=== PATIENT | male | born 1990 | race Caucasian/White ===

== ENCOUNTER 2023-03-21 22:15 | Emergency (ER) | payer OTHER, SELFPAY ==
[2023-03-21 22:21] VITALS: BP 124/84; PULSE 87; RESP 14; TEMP 36.6; O2SAT 98; BMI 22.4
--- NOTE | 2023-03-21 22:28 | PC.NURSE ---
patient states he started to develop a migraine monday night and has been taking OTC excedrin migraine, migraine resolved monday. states he has a history of migraines. but states since migraine has resolved he now feels very tired, states he has been sleeping 16hours a day, and has had no appetite. denies nausesa or vomiting. denies any recent head injury. patient with independent and steady gait. patient with full ROM. denies visual changes.
--- NOTE | 2023-03-21 22:32 | ED_ITS ---
HPI - Weakness General Chief complaint: Weakness Stated complaint: WEAKNESS Time Seen by Provider: 03/21/23 22:28 Mode of arrival: walk-in History of Present Illness HPI Narrative: patient states migraine headache for 3 days. Took OTC Excedrin. Has not taken Excedrin since last PM and the headaches remains resolved. Now he presents with gen. Weakness. States he spends all his time in bed and hasn't been to work. No cough, nausea or vomiting or diarrhea. Just feels gen. weak Complaint: Reports generalized weakness Related Data Allergies Allergy/AdvReac Type Severity Reaction Status Date / Time bee venom protein (honey bee) Allergy Verified 03/21/23 22:25 Review of Systems ROS Status of ROS 10 or more systems reviewed and unremarkable except as noted in history and below Exam Constitutional Vital Signs, click to edit/add: Last Vital Signs Temp 97.9 F 03/21/23 22:21 Pulse 87 03/21/23 22:21 Resp 14 03/21/23 22:21 BP 124/84 03/21/23 22:21 Pulse Ox 98 03/21/23 22:21 O2 Del Method Room Air 03/21/23 22:21 Common normals: no apparent distress, average body habitus, oriented x3, no l imitations and healthy appearing Eye Common normals: EOMs intact bilaterally and conjunctivae normal Respiratory Common normals: normal respiratory effort, no retractions, no use of accessory muscles and clear to auscultation bilaterally GI Common normals: Normal to inspection, nondistended, normoactive bowel sounds present, soft to palpation and non-tender Extremity Common normals: normal to inspection Neuro Common normals: oriented x3, CN's II-XII intact bilaterally, moves all extremities, no focal motor deficits and no sensory deficits noted Psych Appearance: grossly normal Course Vital Signs Vital signs: Vital Signs Temperature 97.9 F 03/21/23 22:21 Pulse Rate 87 03/21/23 22:21 Respiratory Rate 14 03/21/23 22:21 Blood Pressure 124/84 03/21/23 22:21 Pulse Oximetry 98 03/21/23 22:21 Oxygen Delivery Method Room Air 03/21/23 22:21 Temperature 97.9 F 03/21/23 22:21 Pulse Rate 87 03/21/23 22:21 Respiratory Rate 14 03/21/23 22:21 Blood Pressure 124/84 03/21/23 22:21 Pulse Oximetry 98 03/21/23 22:21 Oxygen Delivery Method Room Air 03/21/23 22:21 MDM - Weakness MDM Narrative Medical decision making narrative: patient arrives with complaint of gen. weakness. workup remarkable for dehydration and substance abuse. Patient hydrated and is feeling better. Will discharge home encourage to drink plenty of fluids Lab Data Labs: Lab Results 03/21/23 Range/Units 22:43 WBC 10.1 (4.0-11.0) 10^3/uL RBC 4.82 (4.70-6.10) 10^6/uL Hgb 15.1 (14.0-18.0) g/dL Hct 45.5 (42.0-54.0) % MCV 94.4 H (80.0-94.0) fL MCH 31.3 (25.9-34.0) pg MCHC 33.2 (29.9-35.2) g/dL RDW 12.4 (11.0-15.0) % Plt Count 181 (150-450) 10^3/uL MPV 10.1 (9.5-13.5) fL Neut % (Auto) 58.1 (43.0-75.0) % Lymph % (Auto) 25.8 (20.5-60.0) % [place] % (Auto) 7.6 (1.7-12.0) % Eos % (Auto) 6.5 (0.9-7.0) % Baso % (Auto) 1.5 (0.2-2.0) % Neut # (Auto) 5.9 (1.4-6.5) 10^3/uL Lymph # (Auto) 2.6 (1.2-3.8) 10^3/uL [place] # (Auto) 0.8 (0.3-0.8) 10^3/uL Eos # (Auto) 0.7 (0.0-0.7) 10^3/uL Baso # (Auto) 0.2 H (0.0-0.1) 10^3/uL Abs Immat Gran (auto) 0.05 H (0.00-0.03) 10^3/uL Imm/Tot Granulo (auto) 0.5 (0.0-0.5) % Sodium 138 (136-145) mmol/L Potassium 4.0 (3.5-5.1) mmol/L Chloride 104 (98-107) mmol/L Carbon Dioxide 29.3 (21.0-32.0) mmol/L Anion Gap 8.7 BUN 10.0 (7.0-18.0) mg/dL Creatinine 1.04 (0.70-1.30) mg/dL Est GFR ( Amer) >60 (>=60) Est GFR (Non-Af Amer) >60 (>=60) BUN/Creatinine Ratio 9.6 Glucose 121 H (74-106) mg/dL Calcium 8.5 (8.5-10.1) mg/dL Total Bilirubin 0.3 (0.2-1.0) mg/dL AST 9 L (15-37) U/L ALT 24 (16-63) U/L Alkaline Phosphatase 75 (46-116) U/L Total Protein 6.9 (6.4-8.2) g/dL Albumin 3.9 (3.4-5.0) g/dL Globulin 3.0 g/dL Albumin/Globulin Ratio 1.3 TSH 1.319 (0.358-3.740) uIU/mL Free T4 0.86 (0.76-1.46) ng/dL Urine Color Yellow (YELLOW) Urine Clarity Clear (CLEAR) Urine pH 5.5 (5.0-9.0) Ur Specific [place] >=1.030 A (1.005-1.025) Urine Protein Negative (NEG/TRACE) mg/dL Urine Glucose (UA) Negative (NEGATIVE) mg/dL Urine Ketones Negative (NEGATIVE) mg/dL Urine Occult Blood Negative (NEGATIVE) Urine Nitrite Negative (NEGATIVE) Urine Bilirubin Negative (NEGATIVE) Urine Urobilinogen 0.2 (0.2-1.0) EU/dL Ur Leukocyte Esterase Negative (NEGATIVE) Urine RBC Cancelled Urine WBC Cancelled Ur Squamous Epith Cells Cancelled Ur Transition Epith Cell Cancelled Ur Renal Epithelial Cell Cancelled Urine Crystals Cancelled Calcium Carbonate Cryst Cancelled Calcium Phosphate Cryst Cancelled Calcium Oxalate Crystal Cancelled Cystine Crystals Cancelled Uric Acid Crystals Cancelled Triple Phos Crystals Cancelled Tyrosine Crystals Cancelled Amorphous Sediment Cancelled Urine Bacteria Cancelled Urine Casts Cancelled Fatty Casts Cancelled Hyaline Casts Cancelled Fine Granular Casts Cancelled Coarse Granular Casts Cancelled Waxy Casts Cancelled RBC Casts Cancelled Urine Starch Cancelled Urine Mucus Cancelled Urine Trichomonas Cancelled Urine Yeast Cancelled Urine Sperm Cancelled Ur Oval Fat Bodies Cancelled Ur Culture Indicated? Cancelled Urine Opiates Screen Negative (NEGATIVE) Ur Buprenorphine Scrn Negative (NEGATIVE) Ur Oxycodone Screen Negative (NEGATIVE) Urine Methadone Screen Negative (NEGATIVE) Ur Propoxyphene Screen Negative (NEGATIVE) Ur Barbiturates Screen Negative (NEGATIVE) U Tricyclic Antidepress Negative (NEGATIVE) Ur Phencyclidine Scrn Negative (NEGATIVE) Ur Amphetamines Screen Negative (NEGATIVE) U Methamphetamines Scrn Negative (NEGATIVE) U Benzodiazepines Scrn Negative (NEGATIVE) Urine Cocaine Screen Positive A (NEGATIVE) U Cannabinoids Screen Positive A (NEGATIVE) Discharge Plan Discharge Chief Complaint: Weakness Clinical Impression: Dehydration Patient Disposition: Home, Self-Care Instructions: Dehydration (ED) Stand Alone Forms: Portal Instructions Referrals: Shaikh José MD [Primary Care Provider] - 1 week
[2023-03-21 22:51] LABS: Basophils Absolute Auto 0.2 10^3/uL (0.0-0.1); Basophils Percent Auto 1.5 % (0.2-2.0); Eosinophils Absolute Auto 0.7 10^3/uL (0.0-0.7); Eosinophils Percent Auto 6.5 % (0.9-7.0); Hematocrit 45.5 % (42.0-54.0); Hemoglobin 15.1 g/dL (14.0-18.0); Immature Granulocytes Abs Auto 0.05 10^3/uL (0.00-0.03); Immature Granulocytes Pct Auto 0.5 % (0.0-0.5); Lymphocytes Absolute Auto 2.6 10^3/uL (1.2-3.8); Lymphocytes Percent Auto 25.8 % (20.5-60.0); Mean Corpuscular HGB Conc 33.2 g/dL (29.9-35.2); Mean Corpuscular Hemoglobin 31.3 pg (25.9-34.0); Mean Corpuscular Volume 94.4 fL (80.0-94.0); Mean Platelet Volume 10.1 fL (9.5-13.5); Monocytes Absolute Auto 0.8 10^3/uL (0.3-0.8); Monocytes Percent Auto 7.6 % (1.7-12.0); Neutrophils Absolute Auto 5.9 10^3/uL (1.4-6.5); Neutrophils Percent Auto 58.1 % (43.0-75.0); Platelet Count 181 10^3/uL (150-450); Red Blood Count 4.82 10^6/uL (4.70-6.10); Red Cell Distribution Width 12.4 % (11.0-15.0); White Blood Count 10.1 10^3/uL (4.0-11.0)
[2023-03-21] MEDS: 0.9 % SODIUM CHLORIDE 1,000 ML 999 ML IV ×2 (22:52)
[2023-03-21 23:03] LABS: Bilirubin Urine NEGATIVE (NEGATIVE); Blood Urine NEGATIVE (NEGATIVE); Clarity Urine CLEAR (CLEAR); Color Urine YELLOW (YELLOW); Glucose Urine UA NEGATIVE (NEGATIVE); Ketones Urine NEGATIVE (NEGATIVE); Leukocyte Esterase Urine NEGATIVE (NEGATIVE); Nitrite Urine NEGATIVE (NEGATIVE); Protein Urine NEGATIVE (NEG/TRACE); Specific Gravity Urine >=1.030 (1.005-1.025); Urobilinogen Urine 0.2 EU/dL (0.2-1.0); pH Urine 5.5 (5.0-9.0)
[2023-03-21 23:04] LABS: Urine Microscopic Indicated NO
[2023-03-21 23:08] LABS: Alanine Aminotransferase 24 U/L (16-63); Albumin Globulin Ratio 1.3; Albumin Level 3.9 g/dL (3.4-5.0); Alkaline Phosphatase 75 U/L (46-116); Anion Gap 8.7; Aspartate Amino Transferase 9 U/L (15-37); BUN Creatinine Ratio 9.6; Bilirubin Total 0.3 mg/dL (0.2-1.0); Calcium 8.5 mg/dL (8.5-10.1); Carbon Dioxide 29.3 mmol/L (21.0-32.0); Chloride 104 mmol/L (98-107); Estimated GFR (African America >60 (>=60); Estimated GFR (Non-African Ame >60 (>=60); Glucose 121 mg/dL (74-106); Sodium 138 mmol/L (136-145); Total Protein 6.9 g/dL (6.4-8.2)
[2023-03-21 23:47] LABS: Amphetamine Screen Urine NEGATIVE (NEGATIVE); Barbiturates Screen Urine NEGATIVE (NEGATIVE); Benzodiazepines Screen Urine NEGATIVE (NEGATIVE); Buprenorphine Screen Urine NEGATIVE (NEGATIVE); Cannabinoid Screen Urine POSITIVE (NEGATIVE); Cocaine Screen Urine POSITIVE (NEGATIVE); Methadone Screen Urine NEGATIVE (NEGATIVE); Methamphetamines Screen Urine NEGATIVE (NEGATIVE); Opiate Screen Urine NEGATIVE (NEGATIVE); Oxycodone Screen Urine NEGATIVE (NEGATIVE); Phencyclidine Screen Urine NEGATIVE (NEGATIVE); Tricyclic Antidepressant Urine NEGATIVE (NEGATIVE)
[2023-03-21 23:48] LABS: Free T4 0.86 ng/dL (0.76-1.46)
[2023-03-21 23:52] LABS: Thyroid Stimulating Hormone 1.319 uIU/mL (0.358-3.740)
== END 2023-03-22 00:12 | disposition home or self-care (01) ==
PROVIDERS: Emergency Provider Internal Medicine; PCP Internal Medicine
DX: E86.0 Dehydration (principal); F19.10 Other psychoactive substance abuse, uncomplicated
CPT/HCPCS: 36415; 80053; 80307; 81001; 81003; 84439; 84443; 85025; 96360; 99284

== ENCOUNTER 2024-08-26 02:52 | Emergency (ER) | payer OTHER, SELFPAY ==
[2024-08-26 02:56] VITALS: BP 130/88; PULSE 105; TEMP 36.3; O2SAT 96; BMI 22.5
--- NOTE | 2024-08-26 03:23 | ED.GENADUL1 ---
HPI HPI - General Adult General Chief complaint: Skin/Abscess/Foreign Body Stated complaint: NASAL PAIN Time Seen by Provider: 08/26/24 03:01 Source: patient Mode of arrival: walk-in Limitations: no limitations History of Present Illness HPI narrative: This 34-year-old male presents to the emergency department with a week and a half long history of stuffy nose, facial pain and right ear fullness. He states he has been blowing his nose and has noticed a pressure buildup in his ears mostly the right 1. He also reports pain over the right forehead and right cheek. He denies visual symptoms, chills or fever. Patient also states that he is developing a recurrent pilonidal cyst which has happened to him a number of times in the past. He had been referred to surgery for excision of it but change his mind at the last minute. He denies any history of hypertension, asthma or diabetes. Related Data Previous Rx's ?Medication ?Instructions ?Recorded amoxicillin 875 mg-potassium 1 tab PO BID #20 tabs 08/26/24 clavulanate 125 mg tablet doxycycline hyclate 100 mg capsule 100 mg PO BID 10 days #20 caps 08/26/24 prednisone 20 mg tablet 20 mg PO DAILY #7 tabs 08/26/24 Allergies Allergy/AdvReac Type Severity Reaction Status Date / Time bee venom protein (honey bee) Allergy Anaphylaxis Verified 08/26/24 03:01 Opioid HPI Opioid Management Most Recent Opioid Data: Ur Phencyclidine Scrn Negative (NEGATIVE) 03/21/23 22:43 03/21/23 Review of Systems ROS Narrative All other systems are reviewed and are negative other than what is mentioned in the HPI. PFSH PFS Social History Little interest or pleasure in doing things: not at all Feeling down, depressed, or hopeless: not at all Exam Narrative Exam Narrative: Patient appears nondistressed on arrival. Vital signs are quite stable. Pupils are equal and reactive. Nasal mucosa is congested. There is no facial tenderness. Fluid is seen behind both eardrums. Oral cavity is moist with no pharyngeal erythema. Neck is supple. Lung sounds are clear to auscultation. Heart has regular rate and rhythm. Examination: Of his gluteal region repeat feels a number of healed incision scars along the medial aspect of the right buttock. There is underlying induration and small pockets of fluctuance. There is no overlying redness or warmth. Constitutional Vital Signs, click to edit/add: Last Vital Signs Temp 97.4 F L 08/26/24 02:56 Pulse 105 H 08/26/24 02:56 Resp 16 08/26/24 02:56 BP 130/88 08/26/24 02:56 Pulse Ox 96 08/26/24 02:56 O2 Del Method Room Air 08/26/24 02:56 Course Vital Signs Vital signs: Vital Signs Temperature 97.4 F L 08/26/24 02:56 Pulse Rate 105 H 08/26/24 02:56 Respiratory Rate 16 08/26/24 02:56 Blood Pressure 130/88 08/26/24 02:56 Pulse Oximetry 96 08/26/24 02:56 Oxygen Delivery Method Room Air 08/26/24 02:56 Temperature 97.4 F L 08/26/24 02:56 Pulse Rate 105 H 08/26/24 02:56 Respiratory Rate 16 08/26/24 02:56 Blood Pressure 130/88 08/26/24 02:56 Pulse Oximetry 96 08/26/24 02:56 Oxygen Delivery Method Room Air 08/26/24 02:56 Medical Decision Making [facility] Narrative Medical decision making narrative: Patient presents with sinusitis symptoms of 1-1/2 weeks duration at which point I feel he would benefit from antibiotics. He also has developing an recurrent pilonidal cyst for which he will also need antibiotics. He will be placed on Augmentin and doxycycline and is referred to his PCP and outpatient surgery follow-up. He is also placed on prednisone 20 mg daily for 7 days to help with his sinus symptoms and is advised steam inhalations twice a day. Patient was advised to return anytime for worsening symptoms. Differential Diagnosis Differential Diagnosis: Sinusitis, otitis, facial cellulitis, gluteal abscess. Discharge Plan Discharge Chief Complaint: Skin/Abscess/Foreign Body Clinical Impression: Acute rhinosinusitis, Chronic recurrent pilonidal cyst Patient Disposition: Home, Self-Care Time of Disposition Decision: 03:15 Condition: Good Mode of Transportation: Private Vehicle Prescriptions / Home Meds: New doxycycline hyclate 100 mg capsule 100 mg PO BID 10 Days Qty: 20 0RF prednisone 20 mg tablet 20 mg PO DAILY Qty: 7 0RF amoxicillin-pot clavulanate 875-125 mg tablet 1 tab PO BID Qty: 20 0RF Print Language: Thai Instructions: Pilonidal Cyst (ED), Rhinosinusitis (ED) Additional Instructions: Steam inhalations twice a day. Follow-up with your PCP within a week and with general surgery within a week also. Return for worsening symptoms. Referrals: Brendon Lino MD [Physician] - 1 week Shaikh José MD [Physician] - 1 week
== END 2024-08-26 03:42 | disposition home or self-care (01) ==
PROVIDERS: Emergency Provider Emergency Medicine
DX: J01.90 Acute sinusitis, unspecified (principal); L05.91 Pilonidal cyst without abscess
CPT/HCPCS: 99283

== ENCOUNTER 2025-07-09 08:35 | Emergency (ER) | payer MEDICAID, SELFPAY ==
[2025-07-09 08:42] VITALS: BP 138/75; PULSE 84; TEMP 36.4; O2SAT 100; BMI 21.6
--- NOTE | 2025-07-09 09:01 | CT_ITS ---
[address] [address] Patient Name: KENIA WHITE MRN: [id number] date: 1990 Sex: M Assigned Patient Location: ER Current Patient Location: [facility] Accession/Order Number: [id number] Exam Date: 07/09/2025 09:16 Report Date: 07/09/2025 09:40 At the request of: YOLIE ALCAZAR MD Procedure: CT abdomen pelvis wo con CT abdomen pelvis wo con 07/09/2025 9:21 AM SIGNS AND SYMPTOMS: ^right flank pain, r/o stone TECHNIQUE: Multidetector ct axial images of the abdomen and pelvis were obtained without IV contrast. Multiplanar reformats were performed and reviewed to further define anatomy and possible pathology. CT was performed with one or more of the following dose reduction techniques: Automated exposure control, adjustment of the mA and/or kV according to patient size, or use of iterative reconstruction technique. COMPARISON: 06/07/2022 FINDINGS: Lower Chest: Within normal limits. ABDOMEN: Liver: Within normal limits. Bile Ducts: Normal caliber. Gallbladder: No calcified gallstones. Normal caliber wall. Pancreas: Within normal limits. Spleen: Within normal limits. Adrenals: Within normal limits. Kidneys: There is mild right-sided hydronephrosis. There is a 5 mm nonobstructing stone at the inferior pole collecting system. Additional smaller stones adjacent to this. Pelvis: Reproductive Organs: No pelvic masses. Ureters: There is a 3 mm stone in the proximal right ureter. Bladder: Within normal limits. Bowel: Normal caliber. There is a normal appendix in the right lower quadrant. Mesenteric Lymph Nodes: No enlarged mesenteric lymph nodes. Peritoneum: No ascites or free air, no fluid collection. Vessels: within normal limits Retroperitoneum: Within normal limits. Abdominal Wall: Within normal limits. Bones: Degenerative changes are noted in the lumbar spine and sacroiliac joints. CT/CT abdomen pelvis wo con IMPRESSION: There is a 3 mm stone in the proximal right ureter. There is mild right-sided hydronephrosis. Additional nonobstructing right renal stones are noted. Impression dictated by: Edward Hatfield M.D. 07/09/2025 9:40 AM Dictation Location: [id number] Electronically authenticated by: [id number] Y Date: 07/09/2025 09:40
--- NOTE | 2025-07-09 09:02 | ED.GENADUL1 ---
HPI HPI - General Adult General Chief complaint: Abdominal Pain Stated complaint: R ABDOMINAL PAIN Time Seen by Provider: 07/09/25 08:36 Source: patient Mode of arrival: walk-in History of Present Illness HPI narrative: 35-year-old male presented to the emergency department for a chief complaint of right flank pain. It started few hours ago when he was getting ready for work. He states he cannot get into a comfortable position and has never had pain like this before. He has never had a kidney stone. No injury or unusual activity. No gross hematuria. The pain is severe and continuous. Related Data Previous Rx's ?Medication ?Instructions ?Recorded hydrocodone 5 mg-acetaminophen 325 1 tab PO Q6H PRN pain 5 days #20 07/09/25 mg tablet tabs ondansetron 4 mg disintegrating 4 mg PO Q6H PRN nausea and 07/09/25 tablet vomiting #20 tabs tamsulosin 0.4 mg capsule 0.4 mg PO DAILY #7 caps 07/09/25 Allergies Allergy/AdvReac Type Severity Reaction Status Date / Time bee venom protein (honey bee) Allergy Anaphylaxis Verified 07/09/25 08:41 Opioid HPI Opioid Management Most Recent Opioid Data: Last Pain Scale 8 Today, 09:34 Last MAR Pain Assessment Today, 09:34 Ur Phencyclidine Scrn, (NEGATIVE) Negative 03/21/23, 22:43 Review of Systems ROS Narrative A ten point review of systems is negative except as noted above. PFSH PFS Social History Little interest or pleasure in doing things: not at all Feeling down, depressed, or hopeless: not at all Exam Narrative Exam Narrative: Nurses note and vital signs reviewed General:The patient appears uncomfortable. He is moving around on the cart. Skin:Warm, dry, no pallor noted.There is no rash noted. Head:Normocephalic, atraumatic Eye: Normal conjunctiva, no drainage Ears, Nose, Mouth, and Throat: oral mucosa is moist. Nares patent. Cardiovascular:Regular Rate and Rhythm Respiratory:Patient is in no distress, no accessory muscle use, lungs are clear to auscultation, no wheezing, rales or rhonchi Back:non-tender, no CVA tenderness bilaterally to percussion. No bruise or rash GI: Soft and nontender Musculoskeletal: The patient has no evidence of calf tenderness, no pitting edema, symmetrical pulses noted bilaterally Neurological:A&O, normal speech Psychiatric:Cooperative Constitutional Vital Signs, click to edit/add: Last Vital Signs Temp 97.6 F 07/09/25 08:42 Pulse 84 07/09/25 08:42 Resp 18 07/09/25 08:42 BP 138/75 07/09/25 08:42 Pulse Ox 100 07/09/25 08:42 O2 Del Method Room Air 07/09/25 08:42 Course Vital Signs Vital signs: Vital Signs Temperature 97.6 F 07/09/25 08:42 Pulse Rate 84 07/09/25 08:42 Respiratory Rate 18 07/09/25 08:42 Blood Pressure 138/75 07/09/25 08:42 Pulse Oximetry 100 07/09/25 08:42 Oxygen Delivery Method Room Air 07/09/25 08:42 Temperature 97.6 F 07/09/25 08:42 Pulse Rate 84 07/09/25 08:42 Respiratory Rate 18 07/09/25 08:42 Blood Pressure 138/75 07/09/25 08:42 Pulse Oximetry 100 07/09/25 08:42 Oxygen Delivery Method Room Air 07/09/25 08:42 Medical Decision Making MDM Narrative Medical decision making narrative: 3 mm ureteral stone is noted. He is feeling much better after being given morphine and Toradol and is discharged home on [place], Flomax, and Zofran. He will follow-up with urology. Treatment diagnosis and follow-up were discussed with the patient. Differential Diagnosis Differential Diagnosis: Kidney stone, muscle strain, UTI Lab Data Lab results reviewed: Yes I reviewed the patient's lab results Labs: Lab Results 07/09/25 07/09/25 Range/Units 08:55 08:57 WBC 19.2 H (4.0-11.0) 10^3/uL RBC 4.89 (4.70-6.10) 10^6/uL Hgb 15.4 (14.0-18.0) g/dL Hct 44.9 (42.0-54.0) % MCV 91.8 (80.0-94.0) fL MCH 31.5 (25.9-34.0) pg MCHC 34.3 (29.9-35.2) g/dL RDW 12.6 (11.0-15.0) % Plt Count 240 (150-450) 10^3/uL MPV 10.6 (9.5-13.5) fL Seg Neuts % (Manual) 76.0 H (43.0-75.0) Lymphocytes % (Manual) 15.0 L (20.5-60.0) % Monocytes % (Manual) 7.0 (1.7-12.0) % Eosinophils % (Manual) 2.0 (0.9-7.0) % Basophils % (Manual) 0.0 L (0.2-2.0) % Neutrophils # (Manual) 14.59 H (1.4-6.5) 10^3/uL Lymphocytes # (Manual) 2.88 (1.20-3.80) 10^3/uL Monocytes # (Manual) 1.34 H (0.30-0.80) 10^3/uL Eosinophils # (Manual) 0.38 (0.00-0.70) 10^3/uL Basophils # (Manual) 0.00 (0.00-0.10) 10^3/uL Sodium 136 (136-145) mmol/L Potassium 2.9 L* (3.5-5.1) mmol/L Chloride 96 L (98-107) mmol/L Carbon Dioxide 24.7 (21.0-32.0) mmol/L Anion Gap 18.2 BUN 10.0 (7.0-18.0) mg/dL Creatinine 1.08 (0.70-1.30) mg/dL Est GFR ( Amer) >60 (>=60 mL/min/1.73m^2) Est GFR (Non-Af Amer) >60 (>=60 mL/min/1.73m^2) BUN/Creatinine Ratio 9.3 Glucose 144 H (74-106) mg/dL Calcium 9.5 (8.5-10.1) mg/dL Urine Color Yellow (YELLOW) Urine Clarity Clear (CLEAR) Urine pH 6.5 (5.0-9.0) Ur Specific [place] 1.025 (1.005-1.025) Urine Protein 100 A (NEG/TRACE) mg/dL Urine Glucose (UA) Negative (NEGATIVE) mg/dL Urine Ketones Trace A (NEGATIVE) mg/dL Urine Occult Blood Large A (NEGATIVE) Urine Nitrite Negative (NEGATIVE) Urine Bilirubin Negative (NEGATIVE) Urine Urobilinogen 1.0 (0.2-1.0) EU/dL Ur Leukocyte Esterase Negative (NEGATIVE) Urine RBC 75-100 A (0-2) #/HPF Urine WBC 0-2 A (NONE SEEN) #/HPF Ur Squamous Epith Cells Few A (NONE/RARE) #/LPF Urine Crystals None seen (None Seen) #/HPF Urine Bacteria Trace A (NONE SEEN) #/HPF Urine Casts None seen (NONE SEEN) #/LPF Urine Mucus Moderate A (NONE SEEN) Imaging Data CT scan - abdomen: Radiologist's impression: ITS Impressions Abdomen/Pelvis CT 07/09/25 09:01 IMPRESSION: There is a 3 mm stone in the proximal right ureter. There is mild right-sided hydronephrosis. Additional nonobstructing right renal stones are noted. Impression dictated by: Edward Hatfield M.D. 07/09/2025 9:40 AM Dictation Location[facility] Electronically authenticated by: [id number] Y Date: 07/09/2025 09:40 Discharge Plan Discharge Chief Complaint: Abdominal Pain Clinical Impression: Kidney stone Patient Disposition: Home, Self-Care Time of Disposition Decision: 10:41 Condition: Good Mode of Transportation: Private Vehicle Prescriptions / Home Meds: New hydrocodone-acetaminophen 5-325 mg tablet 1 tab PO Q6H PRN (Reason: pain) 5 Days Qty: 20 0RF ondansetron 4 mg tablet,disintegrating 4 mg PO Q6H PRN (Reason: nausea and vomiting) Qty: 20 0RF tamsulosin 0.4 mg capsule 0.4 mg PO DAILY Qty: 7 0RF Print Language: [place] Instructions: Kidney Stones (ED), How to Strain Your Urine (ED) Referrals: Physician,Non-Staff, MD [Primary Care Provider] - 1 week Bernard Moura MD [Physician, Urology] - 1 week
[2025-07-09] MEDS: 0.9 % SODIUM CHLORIDE 1,000 ML 1000 ML IV (09:10)
[2025-07-09] MEDS: MORPHINE SULFATE 4 MG/ML VIAL IV (09:10)
[2025-07-09 09:18] LABS: Glucose Urine UA NEGATIVE (NEGATIVE)
[2025-07-09 09:20] LABS: Hematocrit 44.9 % (42.0-54.0); Hemoglobin 15.4 g/dL (14.0-18.0); Mean Corpuscular HGB Conc 34.3 g/dL (29.9-35.2); Mean Corpuscular Hemoglobin 31.5 pg (25.9-34.0); Mean Corpuscular Volume 91.8 fL (80.0-94.0); Platelet Count 240 10^3/uL (150-450); Red Blood Count 4.89 10^6/uL (4.70-6.10); White Blood Count 19.2 10^3/uL (4.0-11.0)
[2025-07-09 09:33] LABS: Anion Gap 18.2; Blood Urea Nitrogen 10.0 mg/dL (7.0-18.0); Calcium 9.5 mg/dL (8.5-10.1); Carbon Dioxide 24.7 mmol/L (21.0-32.0); Chloride 96 mmol/L (98-107); Estimated GFR (African America >60 (>=60 mL/min/1.73m^2); Estimated GFR (Non-African Ame >60 (>=60 mL/min/1.73m^2); Glucose 144 mg/dL (74-106); Sodium 136 mmol/L (136-145)
[2025-07-09 09:34] LABS: Potassium 2.9 mmol/L (3.5-5.1)
[2025-07-09] MEDS: KETOROLAC TROMETHAMINE 30 MG/ML VIAL IVP (09:34)
--- OUTSIDE RECORDS SUMMARY | 2025-07-09 09:50 | XMS_ITS | CCD ---
Author Organization [facility] Care Team Providers Care Sales Promotion Director Name Role Phone Tiny Funk Unavailable CindiNat Unavailable Olexa, Yoav Unavailable Ольга Bach Unavailable SHAIKH Yeny RODRIGUEZ Primary Care Unavailable MARKER, DR GUADARRAMA Admitting Unavailable MARKER, DR GUADARRAMA Attending Unavailable MARKER, DR GUADARRAMA Consulting Unavailable AHDOOT, YOLA Consulting Unavailable ALMONTEOSCAR Consulting Unavailable OLEXA, YOAV Admitting Unavailable OLEADELAIDA, YOAV Attending Unavailable SHAIKH Yeny RODRIGUEZ Primary Care Unavailable ZIEBSAL, DR NELI Thompson Consulting Unavailable OLEADELAIDA, YOAV Consulting Unavailable SHAIKH Yeny RODRIGUEZ Primary Care Unavailable VERNA, DR KATHRINE Thompson Admitting Unavailable VERNA, DR KATHRINE Thompson Attending Unavailable VERNA, DR KATHRINE Thompson Consulting Unavailable Allergies Allergy ClassificationReported Allergen(s)Allergy TypeDate of OnsetReaction(s) Facility (1 source)bee venomDrug allergy (disorder)[id number] [facility] Repository Medications Current Medications MedicationDrug Class(es)DatesSig (Normalized)Sig (Original)Brompheniramine / Pseudoephedrine (1 source)alpha-Adrenergic AgonistStart: 04-73-9704nmvo 5 mL by mouth every six hours as neededBromfed DM 30-2-10 MG/5ML 5 ml as needed Orally every 6 hrs Apr, Activecephalexin 500 mg oral capsule (2 sources)Cephalosporin AntibacterialStart: 96-17-5364bfij 1 capsule by mouth every eight hoursCephalexin 500 MG 1 capsule Orally every 8 hours for 7 days May, Activefluticasone propionate 0.05 mg/actuat metered dose nasal spray (1 source)CorticosteroidStart: 26-53-1603gehj 1 spray(s) nasal route once daily Fluticasone Propionate 50 MCG/ACT 1 spray in each nostril Nasally Once a day for 30 day(s) Apr, ActivemetroNIDAZOLE 500 mg oral tablet (2 sources)Nitroimidazole AntimicrobialStart: 98-35-6884emxt 1 tablet by mouth every eight hoursmetroNIDAZOLE 500 MG 1 tablet Orally every 8 hrs for 7 day(s) May, Active Completed/Discontinued Medications MedicationDrug Class(es)DatesSig (Normalized)Sig (Original)acetaminophen 325 mg / oxyCODONE hydrochloride 5 mg oral tablet (1 source)Opioid Agonisttake 1 tablet by mouth every six hours for pain oxyCODONE-Acetaminophen 5-325 MG (Schedule II Drug) take 1 tablet by mouth every 6 hours if needed for pain Oral for 2 Days Not-Takingamoxicillin 875 mg / clavulanate 125 mg oral tablet (1 source)Penicillin-class AntibacterialAmoxicillin-Pot Clavulanate 875-125 MG take 1 tablet by mouth twice a day for 7 days Oral for 7 Days Not-Taking cefTRIAXone (4 sources)Cephalosporin AntibacterialStart: 28-00-6411Hnlrzeyw 500 mg Feb, 500 mgdoxycycline monohydrate 100 mg oral capsule (4 sources)Tetracycline-class DrugStart: 98-03-3048latn 1 capsule by mouth every twelve hoursDoxycycline Monohydrate 100 MG 1 capsule Orally every 12 hrs for 7 days Feb, Not-Takingibuprofen 800 mg oral tablet (3 sources)Nonsteroidal Anti-inflammatory DrugStart: 14-53-4025qzlk 1 tablet by mouth three times daily at mealtime as neededIbuprofen 800 MG 1 tablet with food or milk as needed Orally Three times a day for 10 day(s) November, Not-Taking Promethazine (4 sources)PhenothiazineStart: 67-06-8120FQZYBTEELUOM (Phenergan) up to 50 mg Mar, 25 mg Problems Active Problems Problem ClassificationProblemDateDocumented DateEpisodic/ChronicHeadache; including migraine (5 sources)Refractory migraine with aura; Translations: [Migraine with aura, intractable, with status migrainosus]ChronicInfective arthritis and osteomyelitis (except that caused by tuberculosis or sexually transmitted di sease) (5 sources)Acute osteomyelitis of left foot; Translations: [Other acute osteomyelitis, left ankle and foot]ChronicSkin and subcutaneous tissue infections (2 sources)Pilonidal cyst without abscess; Translations: [Pilonidal cyst with abscess]Onset: 45-44-3223IxebicfsLigrqptug-related disorders (1 source)Nicotine dependence, cigarettes, uncomplicated; Translations: [NICOTINE DEPEND CIGARETTES UNCOMP]Onset: 00-30-7503HbvktcuAriiiztctamc (3 sources)COUGH, UNSPECIFIED; Translations: [COUGH, UNSPECIFIED]Onset: 89-25-9033Almatakmvgjw (1 source)CONTACT W/AND (SUSP) EXPOS COVID-19; Translations: [CONTACT W/AND (SUSP) EXPOS COVID-19]Onset: 00-75-4656Hbzof infection (1 source)Other viral infections of unspecified site; Translations: [OTHER VIRAL INFECTIONS OF UNS SITE]Onset: 92-89-1514Nibwultg Past or Other Problems Problem ClassificationProblemDateDocumented DateEpisodic/ChronicE Codes: Natural/environment (1 source)Overexertion from strenuous movement or load, initial encounter; Translations: [OVEREXERT STRENUOUSMVMT/LOAD INIT]Onset: 87-52-6694Auvtvmch Immunizations and screening for infectious disease (1 source)Contact with and (suspected) exposure to other viral communicable diseasesOnset: 05-20-2021 Resolved: 82-53-7785WedgtloiAqyxq connective tissue disease (1 source)Bursitis of left shoulderOnset: 02-01-2022 Resolved: 39-39-7700GzhqdgjoOtlqx connective tissue disease (3 sources)Pain in left arm; Translations: [PAIN IN LEFT ARM]Onset: 12-21-2021 EpisodicOther non-traumatic joint disorders (5 sources)Pain in left shoulder; Translations: [PAIN IN LEFT SHOULDER]Onset: 02-01-2022 Resolved: 79-01-1976BoiqgzviIuvkdvj and strains (2 sources)Strain of muscle(s) and tendon(s) of the rotator cuff of left shoulder, initial encounter; Translations: [Strain of muscle, fascia and tendon of other parts of biceps, left arm, initial encounter]Onset: 12-17-2021 Resolved: 36-28-1102RqcrqagmAjzwhmlbwvge (1 source)Cough R05.9Unclassified (1 source)COUGH, UNSPECIFIED; Translations: [COUGH, UNSPECIFIED]Onset: 06-07-2022 Results Test NameValueInterpretationReference RangeFacilityCBC AUTO DIFFon 06-08-2022 BASO #0.1 103/ulNormal0.0-0.1The [facility] HospitalComment on above:Performed By: #### CBC #### [facility] [address] [address] [address] Leia GalvezBasophils/100 WBC (Bld)1.3 %Normal0.2-2.0The [facility] Comment on above:Performed By: #### CBC #### [facility] [address] [address] [address] Leia Lee #0.5 103/ulNormal0.0-0.7The [facility] HospitalComment on above: Performed By: #### CBC #### [facility] [address] [address] [address] Leia Fournierosinophils/100 WBC (Bld)4.4 %Normal0.9-7.0The [facility] Comment on above:Performed By: #### CBC #### [facility] [address] [address] [address] Leia Fournierrythrocyte distribution width (RBC) [Ratio]12.7 %Juowax80.0-15.[address] [facility] HospitalComment on above:Performed By: #### CBC #### [facility] [address] [address] [address] Leia GalvezHematocrit (Bld) [Volume fraction]46.6 %Mediin25.0-54.0The [facility] HospitalComment on above:Performed By: #### CBC #### [facility] [address] [address] [address] Leia GalvezHemoglobin (Bld) [Mass/Vol]15.7 g/cROaitqd20.0-18.0The [facility] HospitalComment on above:Performed By: #### CBC #### [facility] [address] [address] [address] Leia Sorensen #0.03 10e3/ulNormal0.00-0.03The [facility] HospitalComment on above:Performed By: #### CBC #### [facility] [address] [place] [address] Dr. Leia Sorensen %0.3 %Normal0.0-0.5The [facility] HospitalComment on above: Performed By: #### CBC #### [facility] [address] [place] [address] Dr. Leia Andrews #2.9 103/ulNormal1.2-3.8The [facility] HospitalComcorewell health [facility] on above:Performed By: #### CBC #### [facility] [address] [place] [address] Dr. Leia Damonhocytes/100 WBC (Bld)26.2 %Zpansx52.5-60.0The [facility] HospitalComcorewell health [facility] hospital on above:Performed By: #### CBC #### [facility] [address] [place] [address] Dr. Leia WinchesterUAL DIFF REQNONormalThe [facility] HospitalComcorewell [facility] on above: Performed By: #### CBC #### [facility] [address] [place] [address] Dr. Leia Colin (RBC) [Entitic mass]31.[address] loBrxkwg00.9-34.0The [facility] Hospitalment on above:Performed By: #### CBC #### [facility] [address] [place] [address] Dr. Leia Colin (RBC) [Mass/Vol]33.7 g/xPMpphys05.9-35.2The [facility] Hospitalment on above:Performed By: #### CBC #### [facility] [address] [place] [address] Dr. Leia Colin (RBC) [Entitic vol]92.3 oAHjkumy92.0-94.0The [facility] HospitalComment on above:Performed By: #### CBC #### [facility] [address] [address] [address] Leia Burnette #1.2 103/ulCritically high0.3-0.8The [facility] Comment on above:Performed By: #### CBC #### [facility] [address] [address] [address] Leia Swannocytes/100 WBC (Bld)11.1 %Normal1.7-12.0[facility] Comment on above:Performed By: #### CBC #### [facility] [address] [place] [address] Dr. Leia Gooden #6.2 103/ulNormal1.4-6.5The [facility] HospitalComment on above:Performed By: #### CBC #### [facility] [address] [place] [address] Dr. Leia Juarezutrophils/100 WBC (Bld)56.7 %Btbiwf06.0-75.0The [facility] HospitalComment on above:Performed By: #### CBC #### [facility] [address] [place] [address] Dr. Leia Lincolnlet mean volume (Bld) [Entitic vol]10.6 fLNormal9.5-13.5The [facility] HospitalComment on above:Performed By: #### CBC #### [facility] [address] [place] [address] Dr. Leia GalvezPLT190 103/wqOjaalk534-679Bfz [facility] HospitalComment on above: Performed By: #### CBC #### [facility] [address] [place] [address] Dr. Leia GalvezRBC5.05 106/ulNormal4.70-6.10The [facility] HospitalComment on above:Performed By: #### CBC #### [facility] [address] [place] [address] Dr. Leia GalvezWBC10.9 103/ulNormal4.0-11.0The [facility] HospitalComment on above:Performed By: #### CBC #### [facility] [address] [address] [address] Leia Aldana 92-74-0533BYD [Mass/Vol]mg/LNormal<=1.0The [facility] HospitalComment on above:Performed By: #### CMP, CRP #### [facility] [address] [address] [address] Leia GalvezCT ABD/PELV W CONon 05-65-0708JH ABD/PELV W CONEXAMINATION: CT ABD/PELV W CON HISTORY: Pilonidal abscess COMPARISON: None. TECHNIQUE: CT of the abdomen and pelvis with intravenous contrast Dose reduction techniques were achieved by using automated exposure control and/or adjustment of mA and/or kV according to patient size and/or use of iterative reconstruction technique. FINDINGS: TUBES AND IMPLANTS: None. LOWER CHEST: Unremarkable ABDOMEN and PELVIS ABDOMINAL WALL AND SOFT TISSUES: A subcutaneous complicated fluid collection measuring 2.9 by 1.0 by 3.8 centimeters is seen to the right of midline overlying the coccyx. BONES: No suspicious lesions. Multilevel degenerative changes of the spine. ARTERIES: Unremarkable. VEINS: Left circumaortic renal vein LYMPH NODES: Unremarkable. PERITONEUM/ RETROPERITONEUM: Unremarkable. BOWEL: Unremarkable. APPENDIX: Unremarkable LIVER: Visualized segments are unremarkable. GALLBLADDER: Contracted BILE DUCTS: Not dilated SPLEEN: Unremarkable. PANCREAS: Unremarkable. ADRENALS: Unremarkable. KIDNEYS/ URETERS: Unremarkable. REPRODUCTIVE ORGANS: Unremarkable URINARY BLADDER: Unremarkable. IMPRESSION: A subcutaneous complicated fluid collection which appears to be continuous with the skin, measuring 2.9 by 1.0 by 3.8 centimeters is seen to the right of midline overlying the coccyx. This finding likely represents a superinfected pilonidal cyst/sinus. Left circumaortic renal vein is incidentally noted, normal variant. No evidence of acute intra-abdominal or intrapelvic process. Electronically authenticated by: OSCAR ALMONTE Date: 2022-06-07 23:00NormFairfield Medical CenterCULTURE BLOODon 97-26-4143Plmiljgutir examination of blood, cultureCulture Observations: NO GROWTH AT [address] Vincent Hospitalment on above:Performed By: #### CMP, CRP #### [facility] [address] [place] [address] Dr. Leia GalvezLACTATE/LACTIC ACIDon 02-13-7830Afmuykf [Moles/Vol]1.2 mmol/L Normal0.4-1.9The [facility] HospitalComment on above:Performed By: #### LACT #### [facility] [address] [place] [address] Dr. Leia GalvezPROF 14(COMP METB)on 98-93-5224Zuvqjcz [Mass/Vol]4.3 g/dLNormal 3.4-5.0The [facility] HospitalComment on above:Performed By: #### CMP, CRP #### [facility] [address] [place] [address] Dr. Leia GalvezAlbumin/Globulin [Mass ratio]1.2 {ratio}NormalThe [facility] HospitalComment on above:Performed By: #### CMP, CRP #### [facility] [address] [place] [address] Dr. Leia HansonP [Catalytic activity/Vol]94 U/DMundek98-402Eit [facility] HospitalComment on above:Performed By: #### CMP, CRP #### [facility] [address] [place] [address] Dr. Leia Morgan [Catalytic activity/Vol]26 U/REbosya67-49Eee [facility] HospitalComment on above:Performed By: #### CMP, CRP #### [facility] [address] [place] [address] Dr. Leia Freeman gap [Moles/Vol]8.4 mmol/LNormalThe [facility] HospitalComment on above:Performed By: #### CMP, CRP #### [facility] [address] [place] [address] Dr. Leia GalvezAST [Catalytic activity/Vol]14 U/LCritically ycz19-51Ora [facility] HospitalComment on above:Performed By: #### CMP, CRP #### [facility] [address] [place] [address] Dr. Leia GalvezBilirubin [Mass/Vol]0.2 mg/dLNormal0.2-1.0The [facility] Comment on above:Performed By: #### CMP, CRP #### [facility] [address] [place] [address] Dr. Leia GalvezCalcium [Mass/Vol]9.1 mg/dLNormal8.5-10.1The [facility] Comment on above:Performed By: #### CMP, CRP #### [facility] [address] [place] [address] Dr. Leia GalvezChloride [Moles/Vol]104 mmol/UAvblua10-958Wra [facility] Comment on above:Performed By: #### CMP, CRP #### [facility] [address] [place] [address] Dr. Leia GalvezCO2 [Moles/Vol]28.6 mmol/FCdvxhf79.0-32.0[facility] Comment on above:Performed By: #### CMP, CRP #### [facility] [address] [place] [address] Dr. Leia GalvezCreatinine [Mass/Vol]0.85 mg/dLNormal0.70-1.30The [facility] HospitalComment on above:Performed By: #### CMP, CRP #### [facility] [address] [place] [address] Dr. Leia FournierGFR-AF SURINAMESE>60Normal>=60The [facility] HospitalComment on above:Performed By: #### CMP, CRP #### [facility] [address] [place] [address] Dr. Leia FournierGFR-NON AF SURINAMESE>60Normal>=60The [facility] HospitalComment on above:Performed By: #### CMP, CRP #### [facility] [address] [place] [address] Dr. Leia GalvezGlobulin (S) [Mass/Vol]3.5 g/dLNormalThe [facility] HospitalComment on above:Performed By: #### CMP, CRP #### [facility] [address] [place] [address] Dr. Leia GalvezGlucose [Mass/Vol]99 mg/wQEtedxj81-852Zna [facility] Comment on above:Performed By: #### CMP, CRP #### [facility] [address] [place] [address] Dr. Leia GalvezPotassium [Moles/Vol]4.0 mmol/LNormal3.5-5.1The [facility] Comment on above:Performed By: #### CMP, CRP #### [facility] [address] [place] [address] Dr. Leia GalvezProtein [Mass/Vol]7.8 g/dLNormal6.4-8.2The [facility] Comment on above:Performed By: #### CMP, CRP #### [facility] [address] [place] [address] Dr. Leia Berrydium [Moles/Vol]137 mmol/IDokklz611-656Oaf [facility] Comment on above:Performed By: #### CMP, CRP #### [facility] [address] [place] [address] Dr. Leia GalvezUrea nitrogen [Mass/Vol]8.0 mg/dLNormal7.0-18.0The [facility] HospitalComment on above:Performed By: #### CMP, CRP #### [facility] [address] [place] [address] Dr. Leia Sarah nitrogen/Creatinine [Mass ratio]9.4 mg/mgNormalThe [facility] HospitalComment on above:Performed By: #### CMP, CRP #### [facility] [address] [place] [address] Dr. Leia GalvezRESPIRATORY PANEL PLUSon 90-25-8299TvexhhfukpJax detectedNormal NOT DETECTEDThe [facility] HospitalComment on above:Performed By: #### RSPLUS #### [facility] [address] [place] [address] Dr. Leia Michelle ParapertusisNot detectedNormalNOT DETECTEDThe [facility] HospitalComment on above:Performed By: #### RSPLUS #### [facility] [address] [place] [address] Dr. Yilan ChangB. PertussisNot detectedNormalNOT DETECTEDThe [facility] Comment on above:Performed By: #### RSPLUS #### [facility] [address] [address] [address] Leia GalvezChlamydia PneumoniaeNot detectedNormalNOT DETECTEDThe [facility] HospitalComment on above:Performed By: #### RSPLUS #### [facility] [address] [address] [address] Leia GalvezCoronavirus 229ENot detectedNormalNOT DETECTEDThe [facility] HospitalComment on above:Performed By: #### RSPLUS #### [facility] [address] [address] [address] Leia Chronavirus MUE1Yjk detectedNormalNOT DETECTEDThe [facility] HospitalComment on above:Performed By: #### RSPLUS #### [facility] [address] [address] [address] Leia GalvezCoronavirus IU36Wfu detectedNormalNOT DETECTEDThe [facility] HospitalComment on above:Performed By: #### RSPLUS #### [facility] [address] [address] [address] Leia Chronavirus BA63Dil detectedNormalNOT DETECTEDThe [facility] HospitalComment on above:Performed By: #### RSPLUS #### [facility] [address] [address] [address] Leia Morgan H1 2009Not detectedNormalNOT DETECTEDThe [facility] HospitalComment on above:Performed By: #### RSPLUS #### [facility] [address] [address] [address] Leia Bello A H3Not detectedNormalNOT DETECTEDThe [facility] Comment on above:Performed By: #### RSPLUS #### [facility] [address] [address] [address] Leia Bello BNot detectedNormalNOT DETECTEDThe [facility] Comment on above:Performed By: #### RSPLUS #### [facility] [address] [address] [address] Leia FoxneumovirusNot detectedNormalNOT DETECTEDThe [facility] HospitalComment on above:Performed By: #### RSPLUS #### [facility] [address] [address] [address] Leia Low. PneumoniaeNot detectedNormalNOT DETECTEDThe [facility] HospitalComment on above:Performed By: #### RSPLUS #### [facility] [address] [address] [address] Leia Koehler 1Not detectedNormalNOT DETECTEDThe [facility] HospitalComment on above:Performed By: #### RSPLUS #### [facility] [address] [place] [address] Dr. Leia Koehler 2Not detectedNormalNOT DETECTEDThe [facility] HospitalComment on above:Performed By: #### RSPLUS #### [facility] [address] [place] [address] Dr. Leia Koehler 3Not detectedNormalNOT DETECTEDThe [facility] HospitalComment on above:Performed By: #### RSPLUS #### [facility] [address] [place] [address] Dr. Leia Koehler 4Not detectedNormalNOT DETECTEDThe [facility] HospitalComcorewell health [facility] on above:Performed By: #### RSPLUS #### [facility] [address] [address] [address] Leia Castro/EnterovirusDetectedAbnormalNOT DETECTEDThe [facility] HospitalComment on above:Performed By: #### RSPLUS #### [facility] [address] [address] [address] Leia Chester Header 1RESPIRATORY PANEL: VIRUSESSt. [facility]'s Hospital on above:Performed By: #### RSPLUS #### [facility] [address] [address] [address] Leia Chester Header 2RESPIRATORY PANEL: BACTERIANoHolzer HospitalComment on above:Performed By: #### RSPLUS #### [facility] [address] [place] [address] Dr. Leia GalvezRSVNot detectedNormalNOT DETECTEDThe [facility] HospitalComment on above:Performed By: #### RSPLUS #### [facility] [address] [place] [address] Dr. Leia GalvezSARS-CoV-2 (COVID-19) RNA SKYE+probe Ql (Unsp spec)Not detected NormalNOT DETECTEDThe [facility] HospitalComment on above:Performed By: #### RSPLUS #### [facility] [address] [place] [address] Dr. Leia GalvezSENickolas RATE WAYNEERGRENon 84-74-8376GSD RATE13 mm/hrNormal<=15The [facility] HospitalComment on above:Performed By: #### SEDR #### [facility] [address] [place] [address] Dr. Leia GalvezXR CHEST 1 Von 83-91-7458GV CHEST 1 VEXAMINATION: XR CHEST 1 V, , 06/07/2022 9:47 PM EST INDICATION: COUGH HISTORY: Ordering Provider Reason for Exam: Technologist Note: Additional: COMPARISON: None. TECHNIQUE: Chest x-ray: One view. FINDINGS: No pneumothorax, pleural effusion or focal airspace consolidation. Heart is normal in size. Bony thorax is unremarkable. IMPRESSION: No acute cardiopulmonary process. Electronically authenticated by: YOLA DALEY Date: 2022-06-07 22:49NormalThe [facility] HospitalCOVID/FLU/RSV RT-PCRon 96-02-2684DPUG-CoV-2 (COVID-19) RNA SKYE+probe Ql (Unsp spec)NegativeNoMadison Vaccines Other COVID/FLU/RSV RT-PCRNegativeNoMil[employer] Other CULTURE BLOODon 22-61-5401Lilcnsmdhpi examination of blood, cultureCulture Observations: NO GROWTH AT [address] [facility] HospitalComment on above:Performed By: #### [id number] #### [facility] [address] [place] [address] Dr. Leia Potter Quick Testingon 06-45-6344ZjmbvlSkcgjssvWnecq [employer] Other xr foot LT min 3V*on 85-50-8743OM foot LT min 3V* [facility] [place] [address] [place] [id number] XRay Report Signed Patient: Kenia White MR#: [id number] 55 : 1990 Acct:[id number] Age/Sex: 31 / M ADM Date: 03/16/21 Loc: XDUCLY Room: Type: [facility] Attending Dr: Tiny BAUTISTA Ordering Provider: TINY FUNK Date of Service: 03/16/21 XR/XR foot LT min 3V*: LEFT FOOT/HEEL STEPPED ON NAIL Copies to: TINY FUNK 3 viewsLEFT foot plain film COMPARISON:None HISTORY:Stepped on nail injuring LEFT foot. Cortical irregularity of the posterior inferior portion of the calcaneus identified. This may represent bony erosion. Tiny radiodensities are present in the soft tissues of the heel. These may be incidental and may represent small calcifications. XR/XR foot LT min 3V* IMPRESSION:Cortical regularity involving the posterior portion of the calcaneus. This may represent bony erosive changes. May consider osteomyelitis. Bone scan may be useful to further assess. Impression dictated by: Richmond Hayward M.D.03/16/2021 4:24 PM Dictation Location: [place] [address] Transcribed By: [facility] 03/16/21 1624 Dictated By: Richmond Hayward DO 03/16/21 1622 Signed By: 03/16/21 1624No[facility] Vital Signs Date TimeVital SignValuePerforming QwcpwrknsGtswguwo64-98-1365 15:30-0500Body qmohnm119.1 Gurpreetchandan Bach Other [employer] Other 11-08-2022 15:30-0500Body mass index (BMI) [Ratio]22.8 kg/e7OshdrОльга Bach Other [employer] Other 11-08-2022 15:30-0500Body wxartihkppd044.1 [degF]Ольга Bach Other [employer] Other 11-08-2022 15:30-0500Body .14 kgОльга Bach Other [employer] Other 11-08-2022 15:30-0500Respiratory rate18 /minAmbsal Bach Other [employer] Other 11-08-2022 15:30-0946JeD7% (BldA) [Mass fraction]98 % Ольга Bach Other [employer] Other 11-04-2022 17:00-0400Body .1 cmAchandan Bach Other [employer] Other 11-04-2022 17:00-0400Body mass index (BMI) [Ratio] 22.46 kg/o3Nzpfmsal Bach Other [employer] Other 11-04-2022 17:00-0400Body nueffdspcdr08.2 [degF]Ольга Bach Other [employer] Other 11-04-2022 17:00-0400Body mmeyzc52.24 kgОльга Bach Other [employer] Other 11-04-2022 17:00-0400Diastolic blood qezocvcn19 mm[Hg] Ольга Bach Other [employer] Other 11-04-2022 17:00-0400Respiratory rate16 /minОльга Bach Other [employer] Other 11-04-2022 17:00-6167BtK7% (BldA) [Mass fraction]98 % Ольга Bach Other [employer] Other 11-04-2022 17:00-0400Systolic blood lxhjnjte081 mm[Hg] Ольга Bach Other [employer] Other 07-05-2022 14:15-0400Body oqibvb069.1 cmThomas Olexa Other [employer] Other 05-20-2022 19:20-0400Body uofkek653.1 Jevonsimone Deleonmond Other [employer] Other 05-20-2022 19:20-0400Body mass index (BMI) [Ratio] 21.13 kg/s3Qvtjzw Cindi Other [employer] Other 05-20-2022 19:20-0400Body nwwksuiostd35.4 [degF]Nat Puente Other [employer] Other 05-20-2022 19:20-0400Body hdtnhi99.61 kgPaerica Cindi Other [employer] Other 05-20-2022 19:20-0400Diastolic blood qgtdcizu12 mm[Hg] Nat Cindi Other [employer] Other 05-20-2022 19:20-0400Respiratory rate18 /minPamela Cindi Other [employer] Other 05-20-2022 19:20-0000FuC7% (BldA) [Mass fraction]98 % Nat Puente Other [employer] Other 05-20-2022 19:20-0400Systolic blood ayzukfhx972 mm[Hg] Nat Puente Other [employer] Other 10-21-2021 14:45-0400Body jsudzq114.1 cmSjose Funk Other [employer] Other 10-21-2021 14:45-0400Body mass index (BMI) [Ratio] 22.63 kg/n0Kowlljgxbakanksha Funk Other [employer] Other 10-21-2021 14:45-0400Body yozzogpfchc540.1 [degF] Tiny Funk Other [employer] Other 10-21-2021 14:45-0400Body .69 kgStakanksha Funk Other [employer] Other 10-21-2021 14:45-0400Respiratory rate18 /minSjose Funk Other [employer] Other 10-21-2021 14:45-7057LfV6% (BldA) [Mass fraction]97 % Tiny Funk Other [employer] Other Encounters Encounter DateEncounter TypeCare ProviderFacilityStart: 06-07-2022 End: 23-46-5394dwhgokjbbmNVZRAT H FAWWADNorth [employer] Other Start: 85-43-5958Tydkpx outpatient visit 15 minutes Ольга KellerFP[facility] ClydeStart: 06-03-2022 End: 83-74-6519jnuqexprehGfisu Keller Other [employer] Other Start: 48-56-9223Ucqsmn outpatient visit 15 minutes Ольга KellerFP[facility] ClydeStart: 02-01-2022 End: 51-05-3455sxyuwjmqaqZFHLGG OLEXANort [employer] Other Start: 42-42-9101Aqlvkt outpatient new 30 minutes Yoav OlexaFPG Maribeth Mac BellevueStart: 12-21-2021 End: 79-49-6774givhxwxbnfDPWUDA H FAWWADFacility:R3Dblom: 12-17-2021 End: 02-82-9132htwqujkchqFuownb Cindi Other [employer] Other Start: 17-10-3683Cgnpxq outpatient visit 15 minutes Nat PuenteFP[facility] ClydeStart: 05-20-2021 End: 45-39-2751fbcvgtzitrVsjvyunnv Lyle Other [employer] Other Start: 58-94-9148Pbpipc outpatient visit 15 minutes Tiny FunkFP[facility] Immunizations Immunization DateImmunizationNotesCare InzvpnbaTprgwtqf10-37-2927Xb not use COVID-19 Pfizer 2 doseStephanie Lyle Other [employer] Other [id number] not use COVID-19 Pfizer 2 doseStephanie Lyle Other [employer]Mil[employer] Other [id number] toxoid, reduced diphtheria toxoid, and acellular pertussis vaccine, adsorbedStakanksha Funk Other [facility] Other Payers DatePayer CategoryPayerPolicy [id number] Health [id number] [id number] [id number] Social History DateTypeDetailFacilityUnknown if ever smokedNocitizens memorial healthcare [employer] Other Sex Assigned At BirthSex Assigned At BirthHoward [facility] Other Evaluation note 06-07-2022 Note Date & JuimLptkGevjlqlv59-20-2532 Evaluation note* Encounter Date Diagnosis Assessment Notes Treatment Notes Treatment Clinical Notes May, Cough (ICD-10 - R05.9) Advised patient that COVID/Influenza A/B/RSV tests were negative today in office. I am concerned that he may be showing signs of sepsis related to pilondial cyst, advised patient to go to ER to be evaluated. Patient verbalizes understanding and is agreeable [facility] Other Evaluation note 06-03-2022 Note Date & LsbiEnaaZryidqnh98-13-4880 Evaluation note* Encounter Date Diagnosis Assessment Notes Treatment Notes Treatment Clinical Notes May, Pilonidal cyst (ICD-10 - L05.91) Discussed diagnosis with patient. Advised patient to take medications as directed, finish entire course, take with food and plenty of water, reviewed allergies and recent antibiotic use. Advised patient to wash area twice a day with soap and water. Stressed importance of follow up with general surgeon. Work note provided. Immediate evaluation in ER for signs/symptoms as discussed. Patient verbalizes understanding and is agreeable with treatment plan May,therPilonidal cyst material was printed [facility] Other Clinical Note 02-02-2022 Note Date & WfsmTprgTvokdims77-66-8860 NotePROCEDURE: XR SHOULDER LT 2V or > HISTORY: Pain of left shoulder joint since injury 2 weeks ago COMPARISON: None. FINDINGS: BONES:No fracture, acute abnormality, or significant arthropathy. SOFT TISSUES:No visible soft tissue swelling. EFFUSION:None visible. OTHER: Negative. IMPRESSION: 1. No acute bone abnormality or appreciable degenerative changes. 2. Consider MRI for soft tissue injury if symptoms persist. Electronically authenticated by: NELI CANALES Date: 2022-02-02 10:02[facility] Evaluation note 02-01-2022 Note Date & VhlpUnduDjhxeyuh87-70-7453 Evaluation note* Encounter Date Diagnosis Assessment Notes Treatment Notes Treatment Clinical Notes Jan, Acute pain of left shoulder (ICD -10 - M25.512) Jan,ursitis of left shoulder (ICD-10 - M75.52)This appears to be pain secondary to subacromial bursitis / rotator cuff tendonitis. We discussed and demonstrated gentle motion exercise and rotator cuff strengthening exercise. Discussed the use ofnon-steroidal anti-inflammatory medication. Patient given order for physical therapy [facility] Other Evaluation note 12-17-2021 Note Date & XyneTmtmGlrlwmbl70-56-1138 Evaluation note* Encounter Date Diagnosis Assessment Notes Treatment Notes Treatment Clinical Notes November, Strain of tendon of left rotator cuff, initial encounter (ICD-10 - S46.012A) Drink plenty fluids, get plenty of rest. Take the ibuprofen as prescribed for pain and swelling. Apply ice to your shoulder 2-3 times a day. Follow-up with your family physician if no improvement in 4 to 5 days. Go to the ER for worsening symptoms or concern [facility] Other Evaluation note 05-20-2021 Note Date & OdfsUinhNqasafkk83-34-1030 Evaluation note* Encounter Date Diagnosis Assessment Notes Treatment Notes Treatment Clinical Notes Apr, Contact with and (asher spected) exposure to other viral communicable diseases (ICD-10 - Z20.828) Today test was performed in office. Results are currently negative. That does not mean that you will not develop COVID or do not currently have a low viral count of COVID. The rapid test works best if symptoms have been over 72 hours and the results can vary if you are asymptomatic There is a higher chance of false negative results to occur if testing is performed too soon. It is recommended thateven if results are negative and you have been exposed to someone that has COVID that you follow current CDC recommendations. These can be found at CDC.GOV. Follow up with primary care provider if symptoms persist or do not improve Apr,Other Additional time spent conducting pre-visit phone call, screening for symptoms, instructions on social distancing, application and removal of PPE, and cleaning of examination room, equipment and supplies was preformed. Patient education given for testing methodology and results. Patient care instructions given in writting by [facility] document. [employer] Other History general Narrative - Reported Note Date & TypeNoteFacilityHistory general Narrative - Reported* Type Description Date Medical History Migraines Medical HistoryADHDMedical HistoryOCDMedical Historypartilally deafSurgical Historytonsillectomy and adenoidectomyHospitalization Historyvirus as a child [facility] Other Summary Purpose Family History No Family History Records FoundNo Family History Records Found Advance Directives No Advanced Directives Records FoundNo Advanced Directives Records Found Additional Source Comments REASON FOR VISIT (unrecogniz ed section and content) #20 MAROON IMPALA FATIGUE, S ORE THROAT, CONGESTION, COVID Provider VisitLEFT SHOULDER PAIN, RECENTLY MOVING HEAVY OBJECTLeft Shoulder PainCYST ON TAILBONECOUGH POSS FEVER CHILLS (unrecognized sect ion and content) No Status Records FoundNo Status Records Found INFORMATION SOURCE (unrecogn ized section and content) DATE CREATED AUTHOR 01/24/2022 [facility] DATE CREATED AUTHOR AUTHOR'S ORGANIZ ATION 06/13/[address] [facility] FOR RECORDS PERTAINING TO PATIENTS WHO ARE OR HAVE BEEN ENROLLED IN A CHEMICAL DEPENDENCY/SUBSTANCEABUSE PROGRAM, SOME INFORMATION MAY BE OMITTED. This clinical summary was aggregated from multiple sources. Caution should be exercised in using it in the provision of clinical care. This summary normalizes information from multiple sources, and as a consequence, information in this document may materially change the coding, format and clinical context of patient data. In addition, data may be omitted in some cases. CLINICAL DECISIONS SHOULD BE BASED ON THE PRIMARY CLINICAL RECORDS. [facility] [employer] (now [employer] [facility]. provides no warranty or guarantee of the accuracy or completeness of information in this document.
[2025-07-09 09:56] LABS: Cast Seen? NONE SEEN #/LPF (NONE SEEN); Crystals Seen? None Seen #/HPF (None Seen)
[2025-07-09 10:27] LABS: Basophils Abs Manual 0.00 10^3/uL (0.00-0.10); Basophils Percent Manual 0.0 % (0.2-2.0); Eosinophils Absolute Manual 0.38 10^3/uL (0.00-0.70); Eosinophils Percent Manual 2.0 % (0.9-7.0); Lymphocytes Absolute Manual 2.88 10^3/uL (1.20-3.80); Lymphocytes Percent Manual 15.0 % (20.5-60.0); Monocytes Absolute Manual 1.34 10^3/uL (0.30-0.80); Monocytes Percent Manual 7.0 % (1.7-12.0); Segmented Neut Absolute Manual 14.59 10^3/uL (1.4-6.5); Segmented Neutrophils % Manual 76.0 (43.0-75.0)
[2025-07-09 10:59] VITALS: BP 134/84; PULSE 102; O2SAT 99
== END 2025-07-09 11:02 | disposition home or self-care (01) ==
PROVIDERS: Emergency Provider Emergency Medicine
DX: N13.2 Hydronephrosis with renal and ureteral calculous obstruction (principal)
CPT/HCPCS: 36415; 74176; 80048; 81001; 85007; 85027; 96374; 96375; 99284; J1885; J2270; J2405